=== PATIENT | male | born 1945 | race Caucasian/White ===

== ENCOUNTER 2025-04-14 19:13 | Emergency (ER) | payer MEDICARE, OTHER ==
[2025-04-14 19:38] LABS: BASOPHILS ABSOLUTE AUTO 0.02 K/uL (0.00-0.20); BASOPHILS PERCENT AUTO 0.3 % (0.0-2.0); EOSINOPHILS ABSOLUTE AUTO 0.03 K/uL (0.00-0.50); EOSINOPHILS PERCENT AUTO 0.5 % (0.0-5.0); HEMATOCRIT 42.8 % (39.0-49.0); HEMOGLOBIN 14.2 g/dL (13.1-16.8); IMMATURE GRAN ABSOLUTE AUTO 0.05 10^3/uL (0.00-0.04); IMMATURE GRAN PERCENT AUTO 0.8 % (0.0-0.4); LYMPHOCYTES ABSOLUTE AUTO 1.44 K/uL (0.50-3.50); LYMPHOCYTES PERCENT AUTO 21.8 % (10.0-50.0); MEAN CORPUSCULAR HEMOGLOBIN 31.1 pg (28.2-33.3); MEAN CORPUSCULAR HGB CONC 33.2 g/dL (31.7-36.0); MEAN CORPUSCULAR VOLUME 93.9 fL (84.0-98.0); MONOCYTES ABSOLUTE AUTO 1.02 K/uL (0.00-1.00); MONOCYTES PERCENT AUTO 15.4 % (2.0-14.0); NEUTROPHILS ABSOLUTE AUTO 4.05 K/uL (1.40-7.00); NEUTROPHILS PERCENT AUTO 61.2 % (45.0-80.0); PLATELET COUNT,PLT 243 K/uL (150-350); RED BLOOD CELL COUNT 4.56 M/uL (4.33-5.41); RED CELL DISTRIBUTION WIDTH 13.2 % (11.2-14.1); WHITE BLOOD CELL COUNT,WBC 6.6 K/uL (4.0-10.2)
[2025-04-14 19:58] LABS: ALANINE AMINOTRANSFERASE,ALT 27 U/L (12-78); ALBUMIN 3.3 g/dL (3.4-5.0); ALKALINE PHOSPHATASE 62 IU/L (46-116); ANION GAP 4.7 meq/L (7-15); ASPARTATE AMNIOTRANSFERASE,AST 10 U/L (15-37); BILIRUBIN TOTAL 0.3 mg/dL (0.2-1.0); BLOOD UREA NITROGEN,BUN 21 mg/dL (7-18); CALCIUM 9.1 mg/dL (8.5-10.1); CARBON DIOXIDE,CO2 31.3 mmol/L (21.0-32.0); CHLORIDE,CL 102 mmol/L (98-107); CREATININE 1.03 mg/dL (0.51-1.17); GLUCOSE RANDOM 127 mg/dL (70-99); POTASSIUM,K 4.5 mmol/L (3.5-5.1); PROTEIN TOTAL,TP 6.4 g/dL (6.4-8.2); SODIUM,NA 138 mmol/L (136-145)
[2025-04-14 20:00] LABS: ESTIMATED GFR 73 mL/min (>=60)
== END 2025-04-14 21:05 ==
LOC: LL.ED 19:13
DX: F03.90 Unspecified dementia, unspecified severity, without behavioral disturbance, psychotic disturbance, mood disturbance, and anxiety (principal); I25.10 Atherosclerotic heart disease of native coronary artery without angina pectoris; I25.2 Old myocardial infarction; I10 Essential (primary) hypertension; E78.00 Pure hypercholesterolemia, unspecified; J44.9 Chronic obstructive pulmonary disease, unspecified; K21.9 Gastro-esophageal reflux disease without esophagitis; E03.9 Hypothyroidism, unspecified; Z86.16 Personal history of COVID-19; Z95.5 Presence of coronary angioplasty implant and graft; Z79.01 Long term (current) use of anticoagulants; Z79.890 Hormone replacement therapy; Z79.899 Other long term (current) drug therapy; W19.XXXA Unspecified fall, initial encounter
CPT/HCPCS: 36415; 70450; 71045; 72125; 72170; 80053; 85025; 99284; 99285